=== PATIENT | female | born 1950 | race Caucasian/White ===

== ENCOUNTER 2025-03-16 13:03 | Outpatient (CLI) | payer MEDICARE ==
--- NOTE | 2025-03-16 15:05 | RADIOLOGY REPORT ---
Indication: DYSPNEA,ORTHOSTATIC HYPOTENSION Technique: CT axial images of the abdomen and pelvis are obtained with intravenous contrast. Coronal and sagittal reformats were obtained. Radiation Dose Information: CTDI volume is 12.3 mGy. Dose-length product is 495 mGy*cm Comparison: None FINDINGS: No large defect within the main left and right pulmonary arteries. Segmental and subsegmental branches do not demonstrate definitive defect. The trachea is patent. No pneumothorax. There is mild Right lower lobe tree-in-bud nodularity. Heart normal in size. Coronary artery calcification disease. Aortic atherosclerotic disease. No supraclavicular or axillary lymphadenopathy. Moderate size hiatal hernia. Radiopaque density/ structure near the diaphragmatic hiatus. Reflux of contrast hepatic veins and IVC. No aggressive osseous process. Thoracic kyphosis. Mild thoracic degenerative disc disease. IMPRESSION: No evidence for large pulmonary embolism. Mild right lower lobe tree-in-bud nodularity which can be seen with bronchiolitis, atypical infection. Coronary artery calcification disease. Moderate size hiatal hernia. Radiopaque structures /density near diaphragmatic hiatus could represent sequela of previous surgical intervention. Correlate clinically. Reflux of contrast the hepatic veins and IVC may represent right heart dysfunction.
== END 2025-03-16 23:59 | disposition home or self-care (01) ==
LOC: RAD 13:03
PROVIDERS: ATTEND Family Medicine
DX: R06.00 Dyspnea, unspecified (principal); R91.1 Solitary pulmonary nodule; I95.1 Orthostatic hypotension; I25.10 Atherosclerotic heart disease of native coronary artery without angina pectoris; I70.0 Atherosclerosis of aorta; K44.9 Diaphragmatic hernia without obstruction or gangrene; M40.294 Other kyphosis, thoracic region; M51.34 Other intervertebral disc degeneration, thoracic region
CPT/HCPCS: 71275; Q9967